=== PATIENT | female | born 2005 ===

== ENCOUNTER → 2025-01-18 | Outpatient (REF) | payer OTHER ==
[2025-01-19 13:56] LABS: Trichomonas vaginalis (AMP) NOT DETECTED (NEGATIVE)
[2025-01-19 14:21] LABS: GC DNA AMPLIFICATION NEGATIVE (NEGATIVE)
== END ==
LOC: M LAB REF 12:13
PROVIDERS: ATTEND Physician Assistant
DX: N76.0 Acute vaginitis (principal)